=== PATIENT | male | born 1990 | race Hispanic/Latino ===

== ENCOUNTER 2018-05-04 20:59 | Emergency (ER) | payer OTHER ==
[2018-05-04] MEDS ORDERED: LIDOCAINE 1% 20 ML MDV ONE (21:10)
--- NOTE | 2018-05-04 21:39 | ER ---
Nurse's Notes [facility] Name: Rishi Best Age: 27 yrs Sex: Male : 1990 Arrival Date: 05/04/2018 Time: 21:01 Bed 24 Private MD: Diagnosis: Laceration without foreign body of left index finger without damage to nail Presentation: 05/04 21:02 Presenting complaint: Patient states: Lacerated left 5th digit with razor blade while aj cutting meat 2 hours [employer]. Transition of care: patient was not received from another setting of care. Complicating Factors: There are no complicating factors for this patient. Onset of symptoms was May 04, 2018. Risk Assessment: Do you want to hurt yourself or someone else? Patient reports no desire to harm self or others. Care prior to arrival: None. 21:02 Method Of Arrival: Law Enforcement: [place] [employer] aj 21:02 Acuity: MARTÍN 4 aj 21:47 Initial Sepsis Screen: Does the patient meet any 2 criteria? No. Patient's initial aj1 sepsis screen is negative. Does the patient have a suspected source of infection? No. Patient's initial sepsis screen is negative. Triage Assessment: 21:03 General: Appears in no apparent distress. comfortable, Behavior is calm, cooperative, aj appropriate for age. Pain: Complains of pain in palmar aspect of middle phalanx of left little finger. Neuro: Level of Consciousness is awake, alert, obeys commands, Oriented to person, place, time, situation, none. Respiratory: Airway is patent Respiratory effort is even, unlabored, Respiratory pattern is regular, symmetrical. Derm: Skin is intact, is healthy with good turgor, Skin is pink, warm \T\ dry. normal. Injury Description: Laceration sustained to palmar aspect of middle phalanx of left little finger is 0.5 to 2.5 cm long, was sustained 1-2 hours ago. is bleeding a small amount. Historical: - Allergies: 21:03 No Known Allergies; aj - Home Meds: 21:03 None [Active]; aj - PMHx: 21:03 None; aj - PSHx: 21:03 None; aj - Immunization history:: Adult Immunizations up to date. - Social history:: Smoking status: Patient/guardian denies using tobacco. - Ebola Screening: : Patient negative for fever greater than or equal to 101.5 degrees Fahrenheit, and additional compatible Ebola Virus Disease symptoms Patient denies exposure to infectious person Patient denies travel to an Ebola-affected area in the 21 days before illness onset No symptoms or risks identified at this time. Screenin:23 Abuse screen: Denies threats or abuse. Denies injuries from another. Nutritional aj1 screening: No deficits noted. Tuberculosis screening: No symptoms or risk factors identified. 21:48 Fall Risk None identified. aj1 Assessment: 21:23 General: Appears in no apparent distress. comfortable, Behavior is calm, cooperative, aj1 appropriate for age. Pain: Complains of pain in left hand Pain does not radiate. Neuro: Level of Consciousness is awake, alert, obeys commands, Oriented to person, place, time, situation, Speech is normal, Facial symmetry appears normal. Cardiovascular: Patient's skin is warm and dry. Respiratory: Airway is patent Respiratory effort is even, unlabored, Respiratory pattern is regular, symmetrical. GI: No signs and/or symptoms were reported involving the gastrointestinal system. : No signs and/or symptoms were reported regarding the genitourinary system. EENT: No signs and/or symptoms were reported regarding the EENT system. Derm: Skin is pink, warm \T\ dry. normal. Musculoskeletal: Circulation, motion, and sensation intact. Injury Description: Laceration sustained to palmar aspect of middle phalanx of left little finger is 0.5 to 2.5 cm long, is bleeding a small amount. Vital Signs: 21:03 BP 156 / 92; Pulse 72; Resp 19; Temp 98.3; Pulse Ox 99% on R/A; Weight 106.59 kg; aj Height 6 ft. 0 in. (182.88 cm); Pain 6/10; 21:03 Body Mass Index 31.87 (106.59 kg, 182.88 cm) aj ED Course: 21:01 Patient arrived in ED. aj 21:03 Triage completed. aj 21:03 Arm band placed on left wrist. Patient placed in an exam room. aj 21:06 Burt Veronica NP is PHCP. aj 21:11 Mohsen Forbes MD is Attending Physician. pm1 21:11 Colette Alanis, RUSTY is Primary Nurse. aj1 21:23 Patient has correct armband on for positive identification. Bed in low position. Call aj1 light in reach. Side rails up X 1. 21:23 No provider procedures requiring assistance completed. aj1 21:47 Patient did not have IV access during this emergency room visit. aj1 Administered Medications: No medications were administered Outcome: 21:38 Discharge ordered by MD. pm1 21:47 Discharged to Law Enforcement aj1 21:47 Condition: good 21:47 Discharge instructions given to patient, police, Instructed on discharge instructions, follow up and referral plans. Demonstrated understanding of instructions, follow-up care. 21:48 Patient left the ED. aj1 Signatures: Colette Alanis RN RN ajDivina Orozco RN RN Burt Duran, RIGHT OF WAY AGENT RIGHT OF WAY AGENT pm1
--- NOTE | 2018-05-04 21:39 | EDPHYS ---
Physician Documentation [facility] Name: Rishi Best Age: 27 yrs Sex: Male : 1990 Arrival Date: 05/04/2018 Time: 21:01 Bed 24 Private MD: ED Physician Mohsen Forbes HPI: 05/04 21:30 This 27 yrs old Male presents to ER via Law Enforcement with complaints of pm1 Laceration To Hand. 21:30 The patient has a laceration related to: Cutting sausage pieces. The laceration(s) pm1 is(are) located on the palmar aspect of middle phalanx of left little finger. Onset: The symptoms/episode began/occurred just prior to arrival. Associated signs and symptoms: Pertinent negatives: deformity, dizziness, numbness distal to injury, suspected foreign body. The patient has not experienced similar symptoms in the past. The patient has not recently seen a physician. Patient cutting pieces of sausage with razor blade and accidentally cut his finger. Razor blade new. Historical: - Allergies: 21:03 No Known Allergies; aj - Home Meds: 21:03 None [Active]; aj - PMHx: 21:03 None; aj - PSHx: 21:03 None; aj - Immunization history:: Adult Immunizations up to date. - Social history:: Smoking status: Patient/guardian denies using tobacco. - Ebola Screening: : Patient negative for fever greater than or equal to 101.5 degrees Fahrenheit, and additional compatible Ebola Virus Disease symptoms Patient denies exposure to infectious person Patient denies travel to an Ebola-affected area in the 21 days before illness onset No symptoms or risks identified at this time. ROS: 21:30 Constitutional: Negative for fever, chills, and weight loss, Respiratory: Negative for pm1 shortness of breath, cough, wheezing, and pleuritic chest pain, Abdomen/GI: Negative for abdominal pain, nausea, vomiting, diarrhea, and constipation, Back: Negative for injury and pain, MS/Extremity: Negative for injury and deformity. 21:30 Cardiovascular: Negative for chest pain, palpitations, and edema, Neuro: Negative for headache, weakness, numbness, tingling, and seizure. 21:30 Skin: Positive for laceration(s), of the palmar aspect of middle phalanx of left little finger. Exam: 21:30 Constitutional: This is a well developed, well nourished patient who is awake, alert, pm1 and in no acute distress. Head/Face: Normocephalic, atraumatic. Chest/axilla: Normal chest wall appearance and motion. Nontender with no deformity. No lesions are appreciated. Cardiovascular: Regular rate and rhythm with a normal S1 and S2. No gallops, murmurs, or rubs. Normal PMI, no JVD. No pulse deficits. Respiratory: Lungs have equal breath sounds bilaterally, clear to auscultation and percussion. No rales, rhonchi or wheezes noted. No increased work of breathing, no retractions or nasal flaring. Abdomen/GI: Soft, non-tender, with normal bowel sounds. No distension or tympany. No guarding or rebound. No evidence of tenderness throughout. Back: No spinal tenderness. No costovertebral tenderness. Full range of motion. 21:30 Musculoskeletal/extremity: Extremities: grossly normal except: noted in the palmar aspect of middle phalanx of left little finger: laceration. 21:30 Skin: injury, laceration(s), the wound is approximately 2 cm(s), with a depth of 0.5 cm(s), of the palmar aspect of middle phalanx of left little finger. Vital Signs: 21:03 BP 156 / 92; Pulse 72; Resp 19; Temp 98.3; Pulse Ox 99% on R/A; Weight 106.59 kg; aj Height 6 ft. 0 in. (182.88 cm); Pain 6/10; 21:03 Body Mass Index 31.87 (106.59 kg, 182.88 cm) aj Laceration: 21:35 Wound Repair of 2cm ( 0.8in ) subcutaneous laceration to palmar aspect of middle pm1 phalanx of left little finger. Linear shaped.. Distal neuro/vascular/tendon intact. Anesthesia: Digital block administered with 3 mls of 1% lidocaine. Wound prep: Extensive cleansing with betadine by me, Wound irrigation with saline by me, Wound explored extensively, Copious irrigation. Skin closed with 4 4-0 Prolene using simple sutures and sterile technique. Dressed with 4x4's. Patient tolerated well. MDM: 21:11 Patient medically screened. pm1 21:35 Data reviewed: vital signs. Data interpreted: Pulse oximetry: on room air is 99 %. pm1 Interpretation: normal. Counseling: I had a detailed discussion with the patient and/or guardian regarding: the historical points, exam findings, and any diagnostic results supporting the discharge/admit diagnosis, the need for outpatient follow up, suture removal in 10-14 days, to return to the emergency department if symptoms worsen or persist or if there are any questions or concerns that arise at home. Administered Medications: No medications were administered Disposition: 05/04/18 21:38 Discharged to Home. Impression: Laceration without foreign body of left index finger without damage to nail. - Condition is Stable. - Discharge Instructions: Laceration Care, Adult, [id number]. - Medication Reconciliation Form, Thank You Letter, Antibiotic Education form. - Follow up: Emergency Department; When: As needed; Reason: Worsening of condition. Follow up: Private Physician; When: 10 - 14 days; Reason: Wound Recheck, Recheck today's complaints, Continuance of care, Staple/Suture removal, Re-evaluation by your physician. - Problem is new. - Symptoms have improved. Addendum: 05/07/2018 10:17 Co-signature as Attending Physician, Mohsen Forbes MD I agree with the assessment and w a plan of care. Signatures: Colette Alanis RN RN ajDivina Orozco RN RN aj Burt Veronica, BLANKET WEAVER BLANKET WEAVER pm1 Mohsen Forbes MD MD [facility]: (The following items were deleted from the chart) 05/04 21:48 21:38 05/04/2018 21:38 Discharged to Home. Impression: Laceration without foreign body aj1 of left index finger without damage to nail. Condition is Stable. Forms are Medication Reconciliation Form, Thank You Letter, Antibiotic Education, Prescription Opioid Use. Follow up: Emergency Department; When: As needed; Reason: Worsening of condition. Follow up: Private Physician; When: 10 - 14 days; Reason: Wound Recheck, Recheck today's complaints, Continuance of care, Staple/Suture removal, Re-evaluation by your physician. Problem is new. Symptoms have improved. pm1
== END 2018-05-04 21:48 | disposition home or self-care (01) ==
LOC: ER 20:59
PROC: 0HQGXZZ Repair Left Hand Skin, External Approach (ICD-10-PCS; principal; 2018-05-04)
DX: S61.217A Laceration without foreign body of left little finger without damage to nail, initial encounter (principal); W26.8XXA Contact with other sharp object(s), not elsewhere classified, initial encounter; Y92.099 Unspecified place in other non-institutional residence as the place of occurrence of the external cause
CPT/HCPCS: 99281